=== PATIENT | female | born 1990 | race Two or more races ===

== ENCOUNTER 2021-02-21 07:40 | Outpatient (CLI) | payer MEDICAID ==
[~2021-02-21] VITALS: Ht 165.1 cm; Wt 109.0 kg
[2021-02-21] MEDS ORDERED: NEWBORN KIT ONE (07:47)
[2021-02-21] MEDS ORDERED: LIDOCAINE 1%, 20ML ONE (07:48)
[2021-02-21] MEDS ORDERED: MISOPROSTOL 200 MCG TABLET ONE (07:48)
[2021-02-21] MEDS ORDERED: OXYTOCIN 30U/ 0.9% NaCL 500ML 0 ML ONE (07:48)
[2021-02-21 07:58] VITALS: BP 131/87
[2021-02-21 09:04] LABS: AMPHETAMINE SCREEN, URINE Negative (Negative); BARBITURATE SCREEN, URINE Negative (Negative); BENZODIAZEPINE SCREEN, URINE Negative (Negative); CANNABINOID SCREEN, URINE Negative (Negative); COCAINE SCREEN, URINE Negative (Negative); METHADONE SCREEN, URINE Negative (Negative); OPIATE SCREEN, URINE Negative (Negative)
[2021-02-21 09:12] LABS: BASOPHILS % (AUTO) 0 % (0-1); EOSINOPHILS % (AUTO) 1 % (1-7); LYMPHOCYTES % (AUTO) 14 % (22-44); MEAN CORPUSCULAR HEMOGLOBIN 27.7 pg (27.0-34.8); MEAN CORPUSCULAR HGB CONC 33.4 g/dL (32.4-35.8); MEAN PLATELET VOLUME 8.9 fL (7.4-10.4); MONOCYTES % (AUTO) 5 % (2-9); NEUTROPHILS % (AUTO) 80 % (42-75); PLATELET COUNT 234 x10^3/uL (130-400); RED BLOOD COUNT 3.58 x10^6/uL (3.82-5.3); RED CELL DISTRIBUTION WIDTH 14.2 % (9.6-15.2)
[2021-02-21 09:15] LABS: ALANINE AMINOTRANSFERASE 56 U/L (12-78); ALBUMIN 2.5 g/dL (3.4-5.0); ANION GAP 10 mmol/L (5-15); CALCIUM 8.8 mg/dL (8.5-10.1); CHLORIDE 109 mmol/L (98-107); CREATININE 0.84 mg/dL (0.55-1.02)
[2021-02-21 09:18] LABS: ALKALINE PHOSPHATASE 136 U/L (45-117); BILIRUBIN,TOTAL 0.7 mg/dL (0.2-1.0)
[2021-02-21 09:29] LABS: MD NO
[2021-02-21 09:31] LABS: MICROSCOPIC INDICATED
[2021-02-21] MEDS ORDERED: ZOLPIDEM 5MG TABLET ONE (10:15)
[2021-02-21] MEDS ORDERED: ZOLPIDEM 10MG TABLET PO PRN (10:30)
== END 2021-02-21 10:30 | disposition home or self-care (01) ==
LOC: LDOP 07:40
PROVIDERS: ATTEND Obstetrics & Gynecology
DX: O26.893 Other specified pregnancy related conditions, third trimester (principal); Z3A.38 38 weeks gestation of pregnancy
CPT/HCPCS: 36415; 59025; 76815; 80053; 80307; 81001; 82570; 84112; 84156; 84550; 85025; 87086